=== PATIENT | male | born 1985 | race Caucasian/White ===

== ENCOUNTER → 2019-07-23 | Outpatient (CLI) | payer OTHER, BC ==
[~2019-07-23] MED LIST: ACET500 PO; AZIT250 PO; CIPR250 PO; CIPR500 PO
[2019-07-23 20:49] LABS: Influenza A Negative (NEGATIVE); Influenza B Negative (NEGATIVE)
== END | disposition home or self-care (01) ==
LOC: LAB 17:55 → LAB SHORT 17:55
PROVIDERS: Hospitalist
DX: R50.9 Fever, unspecified (principal); R05 Cough
CPT/HCPCS: 87804

== ENCOUNTER → 2020-06-17 | Outpatient (CLI) | payer OTHER | LOC: LAB SHORT 14:44 → PLD 14:44 | DX: N30.01 Acute cystitis with hematuria (principal) | CPT/HCPCS: 87077; 87086; 87186 ==

== ENCOUNTER 2021-01-08 06:17 | Inpatient (IN) | payer OTHER ==
[~2021-01-08] VITALS: Ht 188 cm; Wt 149.7 kg
[2021-01-08 06:39] LABS: Hematocrit 42.8 % (37.0-53.0); Mean Corpuscular HGB 30.3 pg (26.0-34.0); Mean Corpuscular Volume 87 fL (80-100); Mean Platelet Volume 9.9 fL (9.1-12.4); Platelet Count 124 K/mm3 (150-400); RDW Coefficient Variation 12.2 % (11.7-14.2); RDW Standard Deviation 38.5 fL (35.1-46.3); Red Blood Cell Count 4.95 M/mm3 (4.30-5.90); White Blood Cell Count 6.17 K/mm3 (4.00-11.30)
[2021-01-08 07:05] LABS: Alanine Aminotransfer (ALT/SGP 44 U/L (12-78); Albumin, Blood 3.4 g/dL (3.4-5.0); Albumin/Globulin Ratio 0.8 (0.8-1.8); Alk Phos 44 U/L (50-136); Anion Gap 8 mmol/L (6-16); Aspartate Aminotrans (AST/SGOT 80 U/L (12-37); Bilirubin, Total 0.9 mg/dL (0.1-1.0); Blood Urea Nitrogen 14 mg/dL (8-24); Bun/Creatinine Ratio 15.1 (12.0-20.0); CO2, Blood 27 mmol/L (21-32); Calcium, Blood 8.1 mg/dL (8.5-10.1); Chloride, Blood 97 mmol/L (98-108); Creatinine, Blood 0.93 mg/dL (0.60-1.20); Globulin, Blood 4.3 g/dL (2.2-4.0); Glomerular Filtration Rate >60 (60-); Glucose, Blood 105 mg/dL (70-99); Potassium, Blood 4.2 mmol/L (3.5-5.5); Sodium, Blood 132 mmol/L (136-145); Total Protein, Blood 7.7 g/dL (6.4-8.2); Troponin I <0.015 ng/mL (0.000-0.040)
[2021-01-08 07:07] LABS: BAND PERCENT MAN 1 % (0-8); BASOPHILS PERCENT MAN 0 % (0-2); EOSINOPHILS PERCENT MAN 0 % (0-6); LYMPHOCYTES % ATYPICAL MANUAL 2 % (0-0); LYMPHOCYTES ABSOLUTE MAN 1.66 K/mm3 (0.84-5.20); LYMPHOCYTES PERCENT MAN 25 % (21-46); MONOCYTES ABSOLUTE MAN 0.18 K/mm3 (0.16-1.47); MONOCYTES PERCENT MAN 3 % (4-13); NEUTROPHILS ABSOLUTE MAN 4.31 K/mm3 (1.96-9.15); SEG NEUTROPHILS PERCENT MAN 69 % (41-73); TOTAL CELLS COUNTED 100
--- NOTE | 2021-01-08 10:20 | NUR ---
PT ARRIVED TO UNIT FROM ER VIA GURNEY. ABLE TO TRANSFER SELF TO BED. REPORTS AN INCREASED SOB WITH EXERTION AND SLIGHT SOB WHILE AT REST. PT WAS DIAPHORETIC ON ARRIVAL, HELPED PT CHANGE INTO HOSPITAL GOWN. AFEBRILE AT THIS TIME. PT ON 10L VIA OXYMIZER. SATS 92-94% WHILE THIS RN IS IN THE ROOM. PT HAS CALL LIGHT, EDUCATED PATIENT ON CALLING IF HE FEELS ANY INCREASE IN SHORTNESS OF BREATH. PROVIDED WATER AND FOOD FOR PT PER HIS REQUEST.
--- NOTE | 2021-01-08 16:37 | NUR ---
SHIFT SUMMARY NO ACUTE CHANGES SINCE ARRIVAL TO UNIT. REMAINS ON 10L OXYMIZER. REPORTS SOB AT REST BUT ABLE TO AMBULATE SLOWLY. TOLERATING PO. DENIES LOOSE STOOLS AT THIS TIME, BUT REPORTS AT HOME.
--- NOTE | 2021-01-09 16:04 | NUR ---
PT NOTIFIED THIS RN OF A BLOODY NOSE. UPON ENTERING NOSE WAS NO LONGER BLEEDING BUT HE REPORTED THAT IT FELT DRY. NOTIFIED DR. SANCHEZ. ORDERS RECIEVED FOR SALINE NASAL SPRAY.
--- NOTE | 2021-01-09 18:18 | NUR ---
SHIFT SUMMARY PT DOWN TO 9L OXYMIZER, SATS 92% ATTEMPTING TO TITRATE DOWN. DESATS WITH AMBULATION. RECOVERS QUICKLY. NASAL SPRAY IN ROOM FOR DRY NOSE. PT TOLERATING WELL.
--- NOTE | 2021-01-10 05:06 | NUR ---
SHIFT SUMMARY PT RESTED WELL THIS NOC SHIFT. AAOX4. OXIMYZER AT 9L, 91-95%, RESPIRATIONS 20s, SOB WITH EXERTION. LUNG SOUNDS COARSE T/O WITH FINE CRACKLES IN BASES. ENCOURAGED DEEP BREATHING + REPOSITIONING IN BED NICKO. GOOD PO INTAKE + X2 LARGE UNMEASURED VOIDS. IV SALINE LOCKED. NO ACUTE CHANGES OVER NIGHT. PT CURRENTLY RESTING IN BED WITH CALL LIGHT IN REACH.
[2021-01-10 09:25] LABS: Anion Gap 3 mmol/L (6-16); Blood Urea Nitrogen 18 mg/dL (8-24); Bun/Creatinine Ratio 22.4 (12.0-20.0); CO2, Blood 31 mmol/L (21-32); Calcium, Blood 8.7 mg/dL (8.5-10.1); Chloride, Blood 104 mmol/L (98-108); Glomerular Filtration Rate >60 (60-); Glucose, Blood 146 mg/dL (70-99); Potassium, Blood 3.9 mmol/L (3.5-5.5); Sodium, Blood 138 mmol/L (136-145)
--- NOTE | 2021-01-10 11:55 | NUR ---
REDUCTION OF O2. PT TOLERATING 7 L O2 ON OXIMIZER WELL. STAYING AT 93-94% WITH ACTIVITY. DECREASED O2 VIA NC WITH OXIMIZER TO 6%. PT DENIES SOB OR CHEST PAIN. O2 SATURATION CONTINUES TO BE 94% AT THIS TIME. WILL CONTINUE TO MONITOR. GOAL IS TO GET TO 5% AND PT CAN GO HOME ON 5% O2.
--- NOTE | 2021-01-10 13:44 | NUR ---
REDUCED O2 REDUCED PT'S O2 TO 5L ON OXIMIZER. PT TOLERATING WELL. O2 CURRENTLY AT 96%. WILL CONTINUE TO MONITOR.
[2021-01-10] MEDS ORDERED: DEXA2 PO (16:59)
[2021-01-10] MEDS ORDERED: OMEP20ER PO (16:59)
[2021-01-10] MEDS ORDERED: XARELTO10 M1 PO (17:24)
[2021-01-10] MEDS ORDERED: ASPI81CH PO (17:24)
--- NOTE | 2021-01-10 18:25 | NUR ---
SHIFT SUMMARY PT ADMITTED FOR ACUTE RESPIRATORY FAILURE DUE TO COVID POSITIVE PNEUMONIA. PT A&O X4. PLEASANT DEMEANOR. WAS INDEPENDENT IN ROOM ON OXIMIZER. WEANED PT DOWN TO 4 L O2. PT TOLERATED WELL AND O2 SATS CONTINUED TO MAINTAIN IN MID 90'S. PT DENIED ANY N/V. TOLERATED FOOD INTAKE AND FLUIDS WELL. PT EVALUATED BY PHYSICAL THERAPY FOR HOME O2 PER DR. SANCHEZ. PT OKAY'D TO DISCHARGE ON OXYGEN AT HOME.
--- NOTE | 2021-01-10 18:35 | NUR ---
DISCHARGE PT DISCHARGED AT 1600 WITH HOME O2. WALKED TO WHEELCHAIR ON OWN AND TOLERATED WELL. ALL BELONGINGS WERE SENT WITH PT WELL DISCHARGE PACKET. DISCHARGE PACKET WAS DISCUSSED WITH PT AND HE VERBALIZED UNDERSTANDING. ALL PRESCRIPTIONS SENT TO PT'S PHARAMCY AND PT AWARE.
== END 2021-01-10 18:13 | disposition home or self-care (01) | DRG 177 ==
LOC: ER 06:17 → SURS 09:41
PROVIDERS: Emergency Medicine; ADMIT Hospitalist
PROC: 8E0ZXY6 Isolation (ICD-10-PCS; principal; 2021-01-08)
PROC: XW033E5 Introduction of Remdesivir Anti-infective into Peripheral Vein, Percutaneous Approach, New Technology Group 5 (ICD-10-PCS; 2021-01-08)
PROC: 3E0333Z Introduction of Anti-inflammatory into Peripheral Vein, Percutaneous Approach (ICD-10-PCS; 2021-01-08)
DX: U07.1 COVID-19 (principal); J96.01 Acute respiratory failure with hypoxia; J12.82 Pneumonia due to coronavirus disease 2019; Z68.41 Body mass index [BMI] 40.0-44.9, adult; E87.1 Hypo-osmolality and hyponatremia; E66.01 Morbid (severe) obesity due to excess calories; G47.33 Obstructive sleep apnea (adult) (pediatric); F32.9 Major depressive disorder, single episode, unspecified
CPT/HCPCS: 36415; 71045; 80048; 80053; 83880; 84484; 85025; 85379; 86140; 94761; 94762; 96365; 96372-59; 96375; 99285-25; A9270; J1100; J1650; J2405; J7040

== ENCOUNTER → 2023-06-18 | Outpatient (CLI) | payer OTHER ==
[~2023-06-18] MED LIST changes: +ASPI81CH PO; +DEXA2 PO; +OMEP20ER PO; +XARELTO10 M1 PO
[2023-06-18 12:11] LABS: Calcium, Blood 9.2 mg/dL (8.5-10.1); Creatinine, Blood 1.08 mg/dL (0.60-1.20); Potassium, Blood 4.2 mmol/L (3.5-5.5)
== END ==
LOC: LAB 12:01 → LAB SHORT 12:01
PROVIDERS: Physician Assistant Medical
DX: R60.9 Edema, unspecified (principal)
CPT/HCPCS: 80048; 85379